=== PATIENT | female | born 1970 | race Caucasian/White ===

== ENCOUNTER 2017-03-22 21:16 | Emergency (ER) | payer OTHER ==
[~2017-03-22] VITALS: Ht 157.5 cm; Wt 70.3 kg
--- NOTE | 2017-03-22 22:25 | RADIOLOGY REPORT ---
EXAMINATIONS: LEFT HAND 3 VIEWS AND FOREARM 2 VIEWS, LEFT AND LEFT HUMERUS 2 VIEWS CLINICAL INFORMATION: Pain following dog bite. COMPARISON: None. TECHNIQUE: PA, lateral, oblique views of the left hand were obtained. AP and lateral views of the left forearm are provided. AP and lateral views of the left humerus are provided. FINDINGS: There are no fractures or dislocations. There is extensive soft tissue swelling and subcutaneous gas within the proximal forearm. There is no elbow joint effusion. There are no radiopaque foreign bodies. IMPRESSION: Extensive subcutaneous gas and soft tissue swelling about the forearm consistent with the stated history of a dog bite. No radiopaque foreign bodies. No fractures.
--- NOTE | 2017-03-22 22:54 | ED ANIMAL BITE/WOUND CHECK ---
History of Present Illness General Chief Complaint: Animal/Insect Bite Stated Complaint: pt has dog bites Source: patient, family, old records Exam Limitations: no limitations Vital Signs & Intake/Output Vital Signs & Intake/Output Vital Signs Date Time Temp Pulse Resp B/P B/P Pulse O2 O2 Flow FiO2 Mean Ox Delivery Rate 03/23 0013 98.6 61 18 111/63 100 Room Air 03/22 2224 98.0 81 18 147/94 100 Room Air 03/22 2141 98.6 96 18 139/74 100 Room Air ED Intake and Output 03/23 0000 03/22 1200 Intake Total 0 Output Total Balance 0 Intake, Oral 0 Patient 155 lb Weight Weight Reported by Patient Measurement Method Allergies Coded Allergies: latex (Mild, IRRITATION TO SKIN 03/22/17) Reconcile Medications Amoxicillin/Potassium Clav (Augmentin 875-125 Tablet) 875 MG-125 MG TABLET 1 TAB PO BID dog bite Tramadol HCl (Ultram) 50 MG TABLET 1-2 TAB PO Q6PRN PRN severe pain Triage Note: 46/F FROM HOME WITH C/C OF OWN DOG BITE. SUSTAINED [id number] DEEP OPEN SKIN. DOG IS UP TO DATE WITH SHOTS. PT IS NOT SURE OF TETANUS SHOT. NO BLEEDING AT THIS TIME. RIGHT PEDAL PULSE AND CMS ON RIGHT ARM. V/S STABLE. DR. SMITH IN ROOM AND EVALUATED THE PT. Triage Nurses Notes Reviewed? yes Onset: Just prior to arrival Duration: minute(s):, constant, continues in ED Timing: single episode today Injury Environment: home Is Injury an Animal Bite? Yes Animal Type: dog, family pet Context of Animal Attack: entered animal's domain Appearance of Animal: appeared ill Animal Immunization Status: up to date Observation/Capture: animal known/obs x10 days Severity of Attack: bitten Severity: moderate Modifying Factors: Improves With: rest. Worsens With: movement. LMP (ages 10-50): unknown : No Patient currently breastfeeds: No HPI: Prior to admission patient was comforting her dog that just had a seizure. The dog awoke became agitated and bit her at the proximal left forearm and right hand. She reports banging left shoulder against the door. Past History Travel History Traveled to [place] past 21 day No Medical History Any Pertinent Medical History? none Tetanus Vaccine: 03/22/17 Surgical History Surgical History: non-contributory Psychosocial History What is your primary language Croatian Tobacco Use: Never used ETOH Use: occasional use Illicit Drug Use: denies illicit drug use Family History Hx Contributory? No Review of Systems Review of Systems Constitutional: Reports: no symptoms. EENTM: Reports: no symptoms. Respiratory: Reports: no symptoms. Cardiovascular: Reports: no symptoms. GI: Reports: no symptoms. Genitourinary: Reports: no symptoms. Musculoskeletal: Reports: see HPI, joint pain, muscle pain. Skin: Reports: see HPI. Neurological/Psychological: Reports: see HPI, anxiety, emotional problems. Hematologic/Endocrine: Reports: no symptoms. Immunologic/Allergic: Reports: no symptoms. All Other Systems: Reviewed and Negative Physical Exam Physical Exam General Appearance: well developed/nourished, alert, awake, anxious, mild distress Head: atraumatic, normal appearance Eyes: Bilateral: normal appearance, PERRL, EOMI. 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 Skin: normal color, warm/dry, proximal forearm dorsal surface with irregular 4 cm laceration volar surface with 2 cm irregular laceration, right hand with superficial puncture wounds not actively bleeding., left proximal humerus with ecchymotic contusion 3 cm2 Lymphatic: no anterior cervical manuel Progress Differential Diagnosis: abscess, cellulitis Plan of Care: wound care Departure Departure Time of Disposition: 31 Disposition: HOME OR SELF CARE Condition: Stable Clinical Impression Primary Impression: Dog bite of arm Secondary Impressions: Dog bite of right hand Referrals: Pricila STEVENSON,Te Perez (PCP/Family) Additional Instructions: Suture removal 10-14 days Departure Forms: Customer Survey General Discharge Information Prescriptions: Current Visit Scripts Amoxicillin/Potassium Clav (Augmentin 875-125 Tablet) 1 TAB PO BID #20 TAB Tramadol HCl (Ultram) 1-2 TAB PO Q6PRN PRN severe pain #30 TAB Procedures Laceration/Wound Repair Laceration/Wound Repair: Wound Location: upper extremity (left forearm) Wound's Depth, Shape: contused tissue, irregular, into muscle Wound Length (cm): 6.5 (total) Wound Explored: contaminated, irrigated extensively Irrigated w/ Saline (ccs): 1000 Betadine Prep? No Anesthesia: 1% lidocaine Volume Anesthetic (ccs): 10 Wound Debrided: minimal Wound Repaired With: sutures Suture Size/Type: 5:0, nylon Number of Sutures: 14 Layer Closure? No Sterile Dressing Applied: Yes Splint Applied? No Sling Applied? No Date of Last Tetanus: 03/23/17 Tetanus Status: up to date
[2017-03-23 00:13] VITALS: BP 111/63
[2017-03-23] MEDS ORDERED: AUGMENTIN 875-1 EACH PO (00:36)
[2017-03-23] MEDS ORDERED: ULTRAM50 M1 PO (00:36)
== END 2017-03-23 00:49 ==
LOC: ERH 21:16
DX: S51.852A Open bite of left forearm, initial encounter (principal); S61.451A Open bite of right hand, initial encounter; S49.92XA Unspecified injury of left shoulder and upper arm, initial encounter; W54.0XXA Bitten by dog, initial encounter; Y93.89 Activity, other specified; Y92.009 Unspecified place in unspecified non-institutional (private) residence as the place of occurrence of the external cause
CPT/HCPCS: 73060-LT; 73090-LT; 73120-RT; 90471; 90714; 96365; 96366; 96375; J2405

== ENCOUNTER 2017-04-03 07:39 | Emergency (ER) | payer OTHER ==
[~2017-04-03] VITALS: Ht 156.2 cm; Wt 69.4 kg
[~2017-04-03 07:39] MED LIST: AUGMENTIN 875-1 EACH PO; ULTRAM50 M1 PO
[2017-04-03 07:43] VITALS: BP 142/85
--- NOTE | 2017-04-03 08:03 | ED ANIMAL BITE/WOUND CHECK ---
History of Present Illness General Chief Complaint: Suture Removal/Wound Recheck Stated Complaint: SUTURE REMOVAL Source: patient, old records Exam Limitations: no limitations Vital Signs & Intake/Output Vital Signs & Intake/Output Vital Signs Date Time Temp Pulse Resp B/P B/P Pulse O2 O2 Flow FiO2 Mean Ox Delivery Rate 04/03 0745 99 Room Air 04/03 0743 98.1 80 18 142/85 98 Room Air Allergies Coded Allergies: latex (Mild, IRRITATION TO SKIN 03/22/17) Reconcile Medications Amoxicillin/Potassium Clav (Augmentin 875-125 Tablet) 875 MG-125 MG TABLET 1 TAB PO BID dog bite Tramadol HCl (Ultram) 50 MG TABLET 1-2 TAB PO Q6PRN PRN severe pain Triage Note: PT HERE FOR SUTURE REMOVAL FROM 2 AREAS ON HER L ARM AFTER DOG BITE 2 WEEKS AGO. ALSO CONCERNED ABOUT AREA ON UPPER ARM. Triage Nurses Notes Reviewed? yes Onset: Last week Duration: week(s):, better Timing: recent history Injury Environment: home Is Injury an Animal Bite? Yes Animal Type: dog, family pet Context of Animal Attack: approached animal, entered animal's domain Appearance of Animal: appeared ill Animal Immunization Status: up to date Observation/Capture: tested negative for rabies Severity of Attack: bitten, scratched Severity: moderate No Modifying Factors: none LMP (ages 10-50): unknown : No Patient currently breastfeeds: No HPI: Patient presents for suture removal from left elbow and forearm. She denies fever chills nausea vomiting diarrhea abdominal pain chest pain shortness breath headache dysuria rash bleeding wound discharge. Bruising of the left arm persists with ecchymosis forearm and hematoma to left shoulder. Past History Travel History Traveled to [place] past 21 day No Medical History Any Pertinent Medical History? none Neurological: NONE EENT: NONE Cardiovascular: NONE Respiratory: NONE Gastrointestinal: NONE Hepatic: NONE Renal: NONE Musculoskeletal: NONE Psychiatric: NONE Endocrine: NONE Blood Disorders: NONE Cancer(s): NONE [employer] INSTRUCTOR/Reproductive: NONE Tetanus Vaccine: 03/23/17 Surgical History Surgical History: non-contributory Psychosocial History What is your primary language Sierra Leonean Tobacco Use: Never used ETOH Use: denies use Illicit Drug Use: denies illicit drug use Family History Hx Contributory? No Review of Systems Review of Systems Constitutional: Reports: no symptoms. EENTM: Reports: no symptoms. Respiratory: Reports: no symptoms. Cardiovascular: Reports: no symptoms. GI: Reports: no symptoms. Genitourinary: Reports: no symptoms. Musculoskeletal: Reports: no symptoms. Skin: Reports: see HPI. Neurological/Psychological: Reports: no symptoms. Hematologic/Endocrine: Reports: no symptoms. Immunologic/Allergic: Reports: no symptoms. All Other Systems: Reviewed and Negative Physical Exam Physical Exam General Appearance: well developed/nourished, alert, awake, anxious, comfortable Head: atraumatic, normal appearance Eyes: Bilateral: normal appearance, PERRL, EOMI. Ears, Nose, Throat: normal pharynx, normal ENT inspection, hearing grossly normal Neck: normal inspection, supple, full range of motion, no midline tenderness Respiratory: normal breath sounds, chest non-tender, no respiratory distress, quiet respiration, lungs clear Cardiovascular: regular rate/rhythm, normal peripheral pulses, norml femoral pulses equa Peripheral Pulses: 4+ carotid (R), 4+ carotid (L) Gastrointestinal: normal bowel sounds, soft, non-tender, no organomegaly Back: normal inspection, normal range of motion, no vertebral tenderness Extremities: normal range of motion, no ligament instability Neurologic/Psych: awake, alert, oriented x 3, normal mood/affect Reflexes: 2+: bicep (R), bicep (L). Skin: normal color, warm/dry, wounds healing well Lymphatic: no anterior cervical manuel Progress Differential Diagnosis: abscess, cellulitis Plan of Care: Suture removal without complication Steri strips placed to left forearm wound. Departure Departure Time of Disposition: 08 Disposition: HOME OR SELF CARE Condition: Stable Clinical Impression Primary Impression: Encounter for removal of sutures Referrals: Pricila STEVENSON,Te Perez (PCP/Family) Additional Instructions: Keep steri strips on until they fall off. Departure Forms: Customer Survey General Discharge Information
== END 2017-04-03 08:10 ==
LOC: ERH 07:39
DX: Z48.02 Encounter for removal of sutures (principal)